=== PATIENT | female | born 1960 | race Caucasian/White ===

== ENCOUNTER 2017-03-27 08:16 | Outpatient (CLI) | payer OTHER ==
[2017-03-27 09:41] LABS: #Monocytes 0.4 thou/uL (0.11-0.59); #Neutrophils 3.8 thou/uL (1.40-6.50); %Basophils 0.8 % (0.0-1.0); %Eosinophils 0.1 % (0.0-10.0); %Lymphocytes 18.9 % (21.0-51.0); %Monocytes 7.2 % (0.0-10.0); Hematocrit 41.6 % (36.0-47.0); Mean Platelet Volume 8.9 fL (7.4-10.4); Red Blood Cell (RBC) Count 4.25 mill/uL (4.20-5.40); White Blood Cell (WBC) Count 5.2 thou/uL (4.8-10.8)
[2017-03-27 09:42] LABS: Bilirubin Moderate (Negative); Blood, Urine Negative (Negative); Glucose, Urine (Dipstick) Negative (Negative); Ketone, Urine Negative (Negative); Nitrite Negative (Negative); Protein, Urine (Dipstick) Negative (Neg-Trace); Urobilinogen 0.2 mg/dL (0.2-1.0)
[2017-03-27 09:44] LABS: Bacteria/HPF None Seen HPF (None Seen); Hyaline Casts/LPF 0-3 HYALINE CAST LPF (0-3 Hyaline); Squamous Epithelial 0-3 HPF (0-3); WBC/HPF 0-3 HPF (0-3)
[2017-03-27 09:46] LABS: Prothrombin Time 13.2 SEC (12.0-14.7)
[2017-03-27 09:54] LABS: Anion Gap 12 mmol/L (10-20); BUN (Urea Nitrogen) 14 mg/dL (9.8-20.1); Calc. Creatinine Clearance 0 mL/min (70-130); Calcium 9.3 mg/dL (7.8-10.44); Carbon Dioxide 27 mmol/L (22-29); Chloride 102 mmol/L (98-107); Estimated GFR-MDRD 74
== END 2017-03-27 08:17 | disposition home or self-care (01) ==
LOC: LABBT 08:16
PROVIDERS: ATTEND Orthopaedic Surgery
DX: Z01.818 Encounter for other preprocedural examination (principal); M17.12 Unilateral primary osteoarthritis, left knee
CPT/HCPCS: 80048; 81001; 85025; 85610; 86850; 86900; 86901; 87081

== ENCOUNTER 2017-03-27 08:30 | Inpatient (IN) | payer OTHER ==
[2017-03-27 08:26] VITALS: BMI 30.2
[2017-04-02] MEDS ORDERED: Vancomycin HCl 1.5 GM in Sodium Chloride 0.9% 250 ML 300 ML IVPB SCH ×2 (06:15→18:00)
[2017-04-02] MEDS ORDERED: Tranexamic Acid 1,000 MG/100 ML BAG ONE ×2 (06:16→09:17)
[2017-04-02] MEDS ORDERED: Clindamycin/D5W 600 mg/50 ml Premix Bag ONE (06:16)
[2017-04-02] MEDS ORDERED: Midazolam HCl 2 mg/2 ml Vial ONE (06:22)
[2017-04-02] MEDS ORDERED: Ropivacaine 0.2% HCl/PF 20 ML ONE (06:22)
[2017-04-02] MEDS ORDERED: Fentanyl 100 MCG/2 ML VIAL ONE ×3 (06:22→09:19)
[2017-04-02] MEDS ORDERED: Lidocaine 1% (PF) 30 ML VIAL ONE (06:22)
[2017-04-02] MEDS ORDERED: Bupivacaine PF 0.5% 30 ML VIAL ONE (06:28)
[2017-04-02 06:45] LABS: PTT 29.1 SEC (22.9-36.1); Prothrombin Time 13.5 SEC (12.0-14.7)
[2017-04-02] MEDS ORDERED: Promethazine HCl 25 MG/ML VIAL IM PRN ×3 (06:56→09:20)
[2017-04-02] MEDS ORDERED: traMADol HCl 50 MG TAB PO PRN ×3 (06:56→08:51)
[2017-04-02] MEDS ORDERED: HYDROcodone/Acetaminophen 5/325 mg Tablet PO PRN ×2 (06:56)
[2017-04-02] MEDS ORDERED: Ondansetron HCl/PF 4 MG/2 ML Vial IVP PRN ×2 (06:56→09:20)
[2017-04-02] MEDS ORDERED: Ropivacaine HCl/PF 250 ML in Premix Bag 1 BAG NERVE BLCK SCH (06:56)
[2017-04-02] MEDS ORDERED: Zolpidem Tartrate 5 MG TAB PO PRN ×2 (06:56→08:51)
[2017-04-02] MEDS ORDERED: Ondansetron HCl/PF 4 MG/2 ML Vial ONE (07:24)
[2017-04-02] MEDS ORDERED: Dexamethasone 20 MG/5 ML VIAL ONE (07:24)
[2017-04-02] MEDS ORDERED: Propofol 200 MG/20 ML VIAL ONE (07:24)
[2017-04-02] MEDS ORDERED: Acetaminophen 325 MG TAB PO PRN (08:51)
[2017-04-02] MEDS ORDERED: diphenhydrAMINE 25 MG CAP PO PRN (08:51)
[2017-04-02] MEDS ORDERED: HYDROcodone/Acetaminophen 10/325 mg Tablet PO PRN ×2 (08:51)
[2017-04-02] MEDS ORDERED: Tranexamic Acid 1,000 MG in Sodium Chloride 0.9% 100 ML IVPB SCH (09:00)
[2017-04-02] MEDS ORDERED: Promethazine HCl 25 MG/ML VIAL SLOW IVP PRN (09:20)
[2017-04-02] MEDS: Clopidogrel Bisulfate 75 MG TAB PO SCH (10:02)
[2017-04-02] MEDS: Aspirin 325 MG TAB PO SCH ×2 (10:02→20:01)
[2017-04-02] MEDS: Senokot S 8.6-50 MG TAB PO SCH ×2 (10:03→20:01)
[2017-04-02] MEDS: Ramipril 5 MG CAP PO SCH (10:03)
[2017-04-02] MEDS: Multivitamin W/ Minerals 1 TAB PO SCH (10:03)
[2017-04-02] MEDS: Ferrous Gluconate 324 MG TAB PO SCH ×2 (10:03→20:01)
[2017-04-02] MEDS: Furosemide 40 MG TAB PO SCH (10:03)
[2017-04-02] MEDS: Sodium Chloride 0.9% 1,000 ML IV SCH ×2 (10:03→19:47)
--- NOTE | 2017-04-02 10:17 | OP ---
DATE OF PROCEDURE: 04/02/2017 PREOPERATIVE DIAGNOSIS: Left knee osteoarthrosis. POSTOPERATIVE DIAGNOSIS: Left knee osteoarthrosis. PROCEDURE PERFORMED: Left total knee replacement using Telisma pinless navigation. SURGEON: Michael Ling M.D. BOTTLING SUPERVISOR: Reed Frye PA-C. BLOOD LOSS: Minimal. COMPLICATIONS: None. ANESTHESIA: She had general anesthetic, she had a preoperative block. IMPLANTS: To the left knee, Triathlon total knee system. We used a size 4 left cruciate retaining f emur, used a size 3 tibial baseplate that was the universal tibial baseplate. We used a 3 x 9 mm CSX 3 tibial bearing and an asymmetric 29 x 9 X3 patella. DISPOSITION: She did go to recovery room in stable condition. INDICATIONS: This is an active 56-year-old female who comes in complaining of left knee pain, has fa iled all nonoperative treatment at this point. At this time, she opted to have the knee replaced. PROCEDURE IN DETAIL: After all appropriate consent forms were explained and signed, the patient was taken back to the Operating Room and at this time was given general anesthetic. Once the level of ane sthesia was appropriate, a well-padded tourniquet was placed on the left leg and the leg was then pre pped and draped in standard surgical fashion. The limb was exsanguinated and tourniquet taken up to 3 00 mmHg. Midline incision was made with a 10 blade down through the skin and subcutaneous tissue. Bov ie electrocautery was used to coagulate any brisk venous bleeding. A new blade was used to make a med ial parapatellar arthrotomy. Small subperiosteal release was performed medially and excess fat pad wa s removed. The knee was flexed up to gain access to the femur. The femur was navigated and distal fem oral resection was made. Epicondylar access was used to align our sizing jig and this was pinned in p rain. We sized our femur to be a ?? 4:1 cutting block was applied and pinned. Anterior and posterior chamfer cuts were then made. We navigated out our proximal tibia and made our proximal tibial resecti on. Spreaders were used to remove any posterior osteophytes off the back of the femur as well as nita ining meniscal tissue. A long alignment corine was then used to achieve correct rotation of our tibial b aseplate and a size 3 was chosen. This was pinned in place. We trialed the polyethylene and a ?? poly ethylene gave us full extension and good stability throughout range of motion. Two towel clips and a saw were used to cut our patella. Three lug nuts were drilled and 29 x 9 X3 patella was trialed which sat nicely in the trochlear groove. We then drilled our femur and punched our tibia. All components were removed. The knee was thoroughly irrigated and dried. Cement was mixed into the cement gun on e back table. Components were then placed. The knee was held out in full extension until the cement h ad dried. All excess bone cement was removed. Multiple #2 Vicryl stitches as well as a Quill was use d to close our extensor mechanism. 0 Quill followed by a running Monoderm was then used to close the skin. Surgicel glue was then used on the skin. Once this had dried, soft tissue dressing was applied to the limb, tourniquet was let down, and the toes pinked up nicely. The patient was then awakened a nd taken to the Recovery Room in stable condition. All counts were correct at the end of the case. e patient did receive preoperative IV antibiotics. The patient was injected with Exparel for postope rative pain relief.
[2017-04-02] MEDS: Fentanyl 100 MCG/2 ML VIAL IV PRN (10:44)
[2017-04-02] MEDS: Ketorolac Tromethamine 30 MG/ML VIAL IVP SCH ×3 (11:38→23:53)
[2017-04-02] MEDS: Clindamycin/D5W 900 MG in Premix Bag 1 BAG IVPB SCH ×2 (11:39→17:57)
--- NOTE | 2017-04-02 17:28 | PDOC.PN ---
- Subjective Encounter Start Date: 04/02/17 Encounter Start Time: 10:40 Pt seen for management of medical comorbidities, including hypothyroidism. Denies chest pain, shortness of breath, fevers or chills. - Objective MAR Reviewed: Yes Vital Signs & Weight: Vital Signs (12 hours) Temp Pulse Resp BP Pulse Ox 04/02/17 12:00 96 04/02/17 10:10 97.7 F 78 18 135/66 96 Weight Weight 187 lb Phys Exam - Physical Examination Constitutional: NAD HEENT: moist MMs Neck: supple Respiratory: clear to auscultation bilateral Cardiovascular: RRR Gastrointestinal: soft, non-tender s/p L knee surgery Neurological: moves all 4 limbs Psychiatric: normal affect Skin: no rash Dx/Plan (1) Hypothyroidism Code(s): E03.9 - HYPOTHYROIDISM, UNSPECIFIED Status: Chronic (2) Peripheral vascular disease Code(s): I73.9 - PERIPHERAL VASCULAR DISEASE, UNSPECIFIED Status: Chronic (3) HTN (hypertension) Code(s): I10 - ESSENTIAL (PRIMARY) HYPERTENSION Status: Chronic - Plan PT/OT, out of bed/ambulate * . Monitor vital signs, titrate antihypertensives as needed. Start PRN IV hydralazine. PVD stable. Continue thyroid replacement. s/p L knee surgery. Pain management and DVT prophylaxis per orthopedic surgery service. Review of Systems - Review of Systems Respiratory: negative: Cough, Dry, Shortness of Breath, Hemoptysis, SOB with Excertion, Pleuritic Pain, Sputum, Wheezing Cardiovascular: negative: Chest Pain, Palpitations, Orthopnea, Paroxysmal Noc. Dyspnea, Edema, Light Headedness - Medications/Allergies Allergies/Adverse Reactions: Allergies Allergy/AdvReac Type Severity Reaction Status Date / Time Penicillins Allergy Intermediate Hives Verified 03/27/17 08:27 Medications: Current Medications Acetaminophen (Tylenol) 650 mg PO Q4H PRN PRN Reason: [place]/ T > 101F; Mild Pain (1-3) Hydrocodone Bitart/Acetaminophen ([place] 5/325) 1 tab PO Q4H PRN PRN Reason: Mild Pain (1-3) Hydrocodone Bitart/Acetaminophen ([place] 5/325) 2 tab PO Q4H PRN PRN Reason: For Moderate Pain 4-6 Hydrocodone Bitart/Acetaminophen ([place] 10/325) 1 tab PO Q4H PRN PRN Reason: Moderate Pain (4-6) Hydrocodone Bitart/Acetaminophen ([place] 10/325) 2 tab PO Q4H PRN PRN Reason: Severe Pain (7-10) Aspirin (Aspirin) 325 mg PO BID [facility] Last Admin: 04/02/17 10:02 Dose: Not Given Clopidogrel Bisulfate (Plavix) 75 mg PO DAILY [facility] Last Admin: 04/02/17 10:02 Dose: Not Given Diphenhydramine HCl (Benadryl) 25 mg PO Q6H PRN PRN Reason: Itching Fentanyl (Sublimaze) 50 mcg IV Q1H PRN PRN Reason: BT PAIN Last Admin: 04/02/17 10:44 Dose: 50 mcg Ferrous Gluconate (Fergon) 324 mg PO BID [facility] Last Admin: 04/02/17 10:03 Dose: Not Given Furosemide (Lasix) 40 mg PO DAILY [facility] Last Admin: 04/02/17 10:03 Dose: Not Given Ropivacaine 250 ml/ Device 250 mls @ 0 mls/hr NERVE BLCK INF [facility] PRN Reason: As Directed Clindamycin Phosphate/Dextrose (900 mg/ Device) 50 mls @ 100 mls/hr IVPB Q6HR [facility] Stop: 04/02/17 18:29 Last Admin: 04/02/17 11:39 Dose: 50 mls Sodium Chloride (Normal Saline 0.9%) 1,000 mls @ 100 mls/hr IV .Q10H [facility] Last Admin: 04/02/17 10:03 Dose: Not Given Vancomycin HCl 1.5 gm/ Sodium (Chloride) 300 mls @ 200 mls/hr IVPB 1800 [facility] Stop: 04/02/17 19:29 Iron/Minerals/Multivitamins (Theragran M) 1 tab PO DAILY [facility] Last Admin: 04/02/17 10:03 Dose: Not Given Isosorbide Mononitrate (Imdur) 60 mg PO DAILY [facility] Last Admin: 04/02/17 10:03 Dose: Not Given Ketorolac Tromethamine (Toradol) 30 mg IVP Q6HR [facility] Stop: 04/04/17 06:01 Last Admin: 04/02/17 11:38 Dose: 30 mg Ondansetron HCl (Zofran) 4 mg IVP Q6H PRN PRN Reason: Nausea/Vomiting Promethazine HCl (Phenergan) 12.5 mg IM Q4H PRN PRN Reason: Nausea/Vomiting Ramipril (Altace) 10 mg PO DAILY [facility] Last Admin: 04/02/17 10:03 Dose: Not Given Senna/Docusate Sodium (Senokot S) 2 tab PO BID [facility] Last Admin: 04/02/17 10:03 Dose: Not Given Sodium Chloride (Flush - Normal Saline) 10 ml IVF PRN PRN PRN Reason: Saline Flush Thyroid ([place] Thyroid) 90 mg PO 0600 [facility] Tramadol HCl (Ultram) 100 mg PO Q6H PRN PRN Reason: Mild Pain (1-3) Zolpidem Tartrate (Ambien) 5 mg PO HSPRN PRN PRN Reason: Insomnia
[2017-04-02] MEDS ORDERED: hydrALAZINE 20 MG/ML VIAL SLOW IVP PRN (17:44)
[2017-04-02] MEDS: Calcium Carbonate 500 MG ChewTAB PO PRN (21:36)
[2017-04-03] MEDS: Calcium Carbonate 500 MG ChewTAB PO PRN (01:54)
[2017-04-03] MEDS: Ondansetron HCl/PF 4 MG/2 ML Vial IVP PRN ×3 (01:54→20:40)
[2017-04-03 04:34] LABS: Hematocrit 34.1 % (36.0-47.0); Mean Platelet Volume 9.1 fL (7.4-10.4); Red Blood Cell (RBC) Count 3.49 mill/uL (4.20-5.40); White Blood Cell (WBC) Count 11.3 thou/uL (4.8-10.8)
[2017-04-03] MEDS: Sodium Chloride 0.9% 1,000 ML IV SCH ×2 (06:04→15:12)
[2017-04-03] MEDS: Ketorolac Tromethamine 30 MG/ML VIAL IVP SCH ×3 (06:58→18:10)
[2017-04-03] MEDS: Thyroid,Pork 90 MG TAB PO SCH (06:58)
[2017-04-03] MEDS: Furosemide 40 MG TAB PO SCH (07:02)
[2017-04-03] MEDS: Clopidogrel Bisulfate 75 MG TAB PO SCH (08:39)
[2017-04-03] MEDS: Senokot S 8.6-50 MG TAB PO SCH ×2 (08:40→19:19)
[2017-04-03] MEDS: Multivitamin W/ Minerals 1 TAB PO SCH (08:40)
[2017-04-03] MEDS: Aspirin 325 MG TAB PO SCH ×2 (08:40→19:20)
[2017-04-03] MEDS: Ramipril 5 MG CAP PO SCH (08:41)
--- NOTE | 2017-04-03 09:47 | PDOC.PN ---
- Subjective Encounter Start Date: 04/03/17 Encounter Start Time: 08:00 Pt seen for followup re; hypothyroidism. Denies chest pain, shortness of breath, fevers or chills. - Objective MAR Reviewed: Yes Vital Signs & Weight: Vital Signs (12 hours) Temp Pulse Resp BP BP Pulse Ox 04/03/17 08:41 166/85 H 04/03/17 07:25 98.1 F 60 20 166/85 H 95 04/02/17 23:54 68 14 118/69 Weight Weight 187 lb I&O: 04/02/17 04/03/17 04/04/17 06:59 06:59 06:59 Output Total 1050 Balance -1050 Result Diagrams: 04/03/17 03:43 Phys Exam - Physical Examination Constitutional: NAD HEENT: moist MMs Neck: supple Respiratory: clear to auscultation bilateral Cardiovascular: RRR Gastrointestinal: soft, non-tender s/p L knee surgery Neurological: moves all 4 limbs Psychiatric: normal affect Skin: no rash Dx/Plan (1) Hypothyroidism Code(s): E03.9 - HYPOTHYROIDISM, UNSPECIFIED Status: Chronic (2) Peripheral vascular disease Code(s): I73.9 - PERIPHERAL VASCULAR DISEASE, UNSPECIFIED Status: Chronic (3) HTN (hypertension) Code(s): I10 - ESSENTIAL (PRIMARY) HYPERTENSION Status: Chronic - Plan PT/OT, out of bed/ambulate * . Continue thyroid replacement. Monitor vital signs, titrate antihypertensives as needed. Review of Systems - Review of Systems Constitutional: negative: Fever, Chills, Sweats, Weakness, Malaise Respiratory: negative: Cough, Dry, Shortness of Breath, Hemoptysis, SOB with Excertion, Pleuritic Pain, Sputum, Wheezing Cardiovascular: negative: Chest Pain, Palpitations, Orthopnea, Paroxysmal Noc. Dyspnea, Edema, Light Headedness - Medications/Allergies Allergies/Adverse Reactions: Allergies Allergy/AdvReac Type Severity Reaction Status Date / Time Penicillins Allergy Intermediate Hives Verified 03/27/17 08:27 Medications: Current Medications Acetaminophen (Tylenol) 650 mg PO Q4H PRN PRN Reason: [place]/ T > 101F; Mild Pain (1-3) Hydrocodone Bitart/Acetaminophen ([place] 5/325) 1 tab PO Q4H PRN PRN Reason: Mild Pain (1-3) Hydrocodone Bitart/Acetaminophen ([place] 5/325) 2 tab PO Q4H PRN PRN Reason: For Moderate Pain 4-6 Hydrocodone Bitart/Acetaminophen ([place] 10/325) 1 tab PO Q4H PRN PRN Reason: Moderate Pain (4-6) Hydrocodone Bitart/Acetaminophen ([place] 10/325) 2 tab PO Q4H PRN PRN Reason: Severe Pain (7-10) Last Admin: 04/02/17 17:55 Dose: 2 tab Aspirin (Aspirin) 325 mg PO BID [facility] Last Admin: 04/03/17 08:40 Dose: Not Given Calcium Carbonate (Tums) 500 mg PO PRN PRN PRN Reason: Indigestion Last Admin: 04/03/17 01:54 Dose: 500 mg Clopidogrel Bisulfate (Plavix) 75 mg PO DAILY [facility] Last Admin: 04/03/17 08:39 Dose: 75 mg Diphenhydramine HCl (Benadryl) 25 mg PO Q6H PRN PRN Reason: Itching Fentanyl (Sublimaze) 50 mcg IV Q1H PRN PRN Reason: BT PAIN Last Admin: 04/02/17 10:44 Dose: 50 mcg Furosemide (Lasix) 40 mg PO DAILY [facility] Last Admin: 04/03/17 07:02 Dose: 40 mg Hydralazine HCl (Apresoline) 10 mg SLOW IVP Q6H PRN PRN Reason: SBP Greater Than 170 Ropivacaine 250 ml/ Device 250 mls @ 0 mls/hr NERVE BLCK INF ON [facility] OF [facility] PRN Reason: As Directed Last Admin: 04/03/17 09:36 Dose: 250 mls Sodium Chloride (Normal Saline 0.9%) 1,000 mls @ 100 mls/hr IV .Q10H [facility] Last Admin: 04/03/17 06:04 Dose: Not Given Iron/Minerals/Multivitamins (Theragran M) 1 tab PO DAILY [facility] Last Admin: 04/03/17 08:40 Dose: 1 tab Isosorbide Mononitrate (Imdur) 60 mg PO DAILY [facility] Last Admin: 04/03/17 08:40 Dose: 60 mg Ketorolac Tromethamine (Toradol) 30 mg IVP Q6HR [facility] Stop: 04/04/17 06:01 Last Admin: 04/03/17 06:58 Dose: 30 mg Ondansetron HCl (Zofran) 4 mg IVP Q6H PRN PRN Reason: Nausea/Vomiting Last Admin: 04/03/17 07:02 Dose: 4 mg Pantoprazole Sodium (Protonix) 40 mg PO DAILY [facility] Last Admin: 04/03/17 08:40 Dose: 40 mg Promethazine HCl (Phenergan) 12.5 mg IM Q4H PRN PRN Reason: Nausea/Vomiting Ramipril (Altace) 10 mg PO DAILY [facility] Last Admin: 04/03/17 08:41 Dose: 10 mg Senna/Docusate Sodium (Senokot S) 2 tab PO BID [facility] Last Admin: 04/03/17 08:40 Dose: Not Given Sodium Chloride (Flush - Normal Saline) 10 ml IVF PRN PRN PRN Reason: Saline Flush Thyroid (Home Thyroid) 90 mg PO 0600 [facility] Last Admin: 04/03/17 06:58 Dose: 90 mg Tramadol HCl (Ultram) 100 mg PO Q6H PRN PRN Reason: Mild Pain (1-3) Zolpidem Tartrate (Ambien) 5 mg PO HSPRN PRN PRN Reason: Insomnia
[2017-04-03] MEDS: Mag-Al 1200 mg/1200 mg/30 ML UDCUP PO PRN ×2 (11:38→20:37)
[2017-04-03] MEDS: Fentanyl 100 MCG/2 ML VIAL IV PRN (15:20)
[2017-04-03] MEDS ORDERED: traMADol HCl 50 MG TAB PO PRN ×2 (18:41)
[2017-04-04] MEDS: Sodium Chloride 0.9% 1,000 ML IV SCH (00:16)
[2017-04-04] MEDS: Ketorolac Tromethamine 30 MG/ML VIAL IVP SCH ×2 (00:20→06:13)
[2017-04-04 05:26] LABS: Hematocrit 35.6 % (36.0-47.0); Mean Platelet Volume 8.7 fL (7.4-10.4); Red Blood Cell (RBC) Count 3.65 mill/uL (4.20-5.40); White Blood Cell (WBC) Count 7.8 thou/uL (4.8-10.8)
[2017-04-04] MEDS: Thyroid,Pork 90 MG TAB PO SCH (06:13)
[2017-04-04] MEDS: Multivitamin W/ Minerals 1 TAB PO SCH (08:01)
[2017-04-04] MEDS: Ramipril 5 MG CAP PO SCH (08:01)
[2017-04-04] MEDS: Senokot S 8.6-50 MG TAB PO SCH (08:02)
[2017-04-04] MEDS: Clopidogrel Bisulfate 75 MG TAB PO SCH (08:02)
[2017-04-04] MEDS: Aspirin 325 MG TAB PO SCH (09:43)
[2017-04-04] MEDS: Furosemide 40 MG TAB PO SCH (09:43)
[2017-04-04 13:09] VITALS: BP 132/69; TEMP 98.4
[2017-04-04] MEDS: Fentanyl 100 MCG/2 ML VIAL IV PRN (13:36)
--- NOTE | 2017-04-04 14:24 | PDOC.PN ---
- Subjective Encounter Start Date: 04/04/17 Encounter Start Time: 08:20 Pt seen for followup re; hypothyroidism. Denies chest pain, shortness of breath , fevers or chills. - Objective MAR Reviewed: Yes Vital Signs & Weight: Vital Signs (12 hours) Temp Pulse Resp BP BP Pulse Ox 04/04/17 11:35 98.4 F 83 20 132/69 92 L 04/04/17 08:58 98.5 F 86 20 133/76 97 04/04/17 08:01 133/76 04/04/17 08:00 98.5 F 86 20 97 04/04/17 06:00 99.1 F 80 18 145/80 H 94 L Weight Admit Weight 187 lb Weight 187 lb I&O: 04/03/17 04/04/17 04/05/17 06:59 06:59 06:59 Intake Total 1010 Output Total 3575 Balance -2565 Result Diagrams: 04/04/17 05:03 Phys Exam - Physical Examination Constitutional: NAD HEENT: moist MMs Neck: supple Respiratory: clear to auscultation bilateral Cardiovascular: RRR Gastrointestinal: soft s/p L knee surgery Neurological: moves all 4 limbs Psychiatric: normal affect Dx/Plan (1) Hypothyroidism Code(s): E03.9 - HYPOTHYROIDISM, UNSPECIFIED Status: Chronic (2) Peripheral vascular disease Code(s): I73.9 - PERIPHERAL VASCULAR DISEASE, UNSPECIFIED Status: Chronic (3) HTN (hypertension) Code(s): I10 - ESSENTIAL (PRIMARY) HYPERTENSION Status: Chronic - Plan PT/OT, out of bed/ambulate * . Continue to monitor vital signs and titrate antihypertensives. Continue thyroid replacement. Plan to discharge patient noted, will sign off. Review of Systems - Review of Systems Respiratory: negative: Cough, Dry, Shortness of Breath, Hemoptysis, SOB with Excertion, Pleuritic Pain, Sputum, Wheezing Cardiovascular: negative: Chest Pain, Palpitations, Orthopnea, Paroxysmal Noc. Dyspnea, Edema, Light Headedness - Medications/Allergies Allergies/Adverse Reactions: Allergies Allergy/AdvReac Type Severity Reaction Status Date / Time Penicillins Allergy Intermediate Hives Verified 03/27/17 08:27
== END 2017-04-04 14:17 | disposition home or self-care (01) | DRG 470 ==
LOC: SJJU 04-02 05:32
PROVIDERS: ADMIT Orthopaedic Surgery; ATTEND Orthopaedic Surgery
PROC: 0SRD0J9 Replacement of Left Knee Joint with Synthetic Substitute, Cemented, Open Approach (ICD-10-PCS; principal; 2017-04-02)
PROC: 3E0T3BZ Introduction of Anesthetic Agent into Peripheral Nerves and Plexi, Percutaneous Approach (ICD-10-PCS; 2017-04-02)
DX: M17.12 Unilateral primary osteoarthritis, left knee (principal); I10 Essential (primary) hypertension; E03.9 Hypothyroidism, unspecified; I73.9 Peripheral vascular disease, unspecified; Z88.0 Allergy status to penicillin; Z79.82 Long term (current) use of aspirin
CPT/HCPCS: 36415; 85027; 85610; 85730; 93005; 93010; C1713; C1776; G8978-GP-CM; G8979-GP-CI; J0360; J1100; J1885; J2001; J2250; J2405; J2704; J2795; J3010; J3370; J3490; J7050; S0020

== ENCOUNTER 2017-09-07 05:53 | Day surgery (SDC) | payer OTHER ==
[2017-09-06 10:43] VITALS: BMI 29.7
--- NOTE | 2017-09-06 23:35 | HP ---
HISTORY OF PRESENT ILLNESS: Ms. Correa is known to us for evaluation of lumbar radiculopathy bilat erally with an MRI scan performed at the [facility] which reveals severe lumbar stenosis at L4-L5 . She has had 2 epidural steroid injections [address] Dr[address] Hawkins with minimal to no relief and hopes to move forward with surgery at this time. PAST MEDICAL HISTORY: Significant for heart disease, peripheral vascular disease, hypothyroidism. CURRENT MEDICATIONS: Plavix, Lasix, Altace, Synthroid, Imdur. ALLERGIES: PENICILLIN. PAST SURGICAL HISTORY: section x2, tubal ligation, hysterectomy, stent in the peripheral va sculature, and cholecystectomy. PHYSICAL EXAMINATION: NEUROLOGIC: Patient is alert and oriented x3. Gait is antalgic. Lower extremity motor exam is norm al. ASSESSMENT: Lumbar spinal stenosis. PLAN: Dr. Jean-Baptiste met with the patient, reviewed imaging and advocated for an L4-L5 decompression. He explained to the patient the risks, benefits, and alternatives of the procedure. The patient expres sed understanding and would like to move forward with surgery as discussed. They do believe the tyler ent is mentally competent and capable of making medical decisions for herself and move forward with s urgery as planned.
[2017-09-07] MEDS ORDERED: Fentanyl 250 MCG/5 ML VIAL ONE (06:16)
[2017-09-07] MEDS ORDERED: Midazolam HCl 2 mg/2 ml Vial ONE (06:16)
[2017-09-07] MEDS ORDERED: Bupivacaine HCl 0.5%/Epinephrine 1:200,000/PF 30 ml Vial ONE (06:47)
[2017-09-07] MEDS ORDERED: Thrombin 5000 UNITS/5 ML VIAL ONE (06:47)
[2017-09-07] MEDS ORDERED: Clindamycin/D5W 900 mg/50 ml Premix Bag ONE (06:52)
[2017-09-07] MEDS ORDERED: Levofloxacin 500 mg/D5W 100 ml Premix Bag ONE (06:52)
[2017-09-07] MEDS ORDERED: Scopolamine 1.5 mg/72 hour Patch ONE (06:55)
[2017-09-07] MEDS ORDERED: Ondansetron ODT 4 MG TAB ONE (06:55)
[2017-09-07] MEDS ORDERED: Ondansetron HCl/PF 4 MG/2 ML Vial ONE (07:00)
[2017-09-07 07:07] LABS: Anion Gap 10 mmol/L (10-20); BUN (Urea Nitrogen) 17 mg/dL (9.8-20.1); Calc. Creatinine Clearance 113 mL/min (70-130); Calcium 9.5 mg/dL (7.8-10.44); Carbon Dioxide 29 mmol/L (22-29); Chloride 104 mmol/L (98-107); Estimated GFR-MDRD 82; Glucose 101 mg/dL (70-105); Potassium 4.3 mmol/L (3.5-5.1); Sodium 139 mmol/L (136-145)
--- NOTE | 2017-09-07 08:40 | OP ---
DATE OF SERVICE: 09/07/2017 SURGEON: Salvador Jean-Baptiste M.D. RIPRAP MAN: Davi Irving PA-C. INDICATION: Pain. DIAGNOSIS: Lumbar stenosis with neurogenic claudication. PROCEDURE PERFORMED: L4-L5 lumbar decompression. ANESTHESIA: General. TECHNIQUE: The patient was brought into the operating room and placed under general anesthesia. She was flipped from a supine to prone position on the operating room table. A linear incision was plan krissy over the L4-L5 segment. After prepping and draping and after an appropriate operative pause, the incision was created. The soft tissues were swept away from midline. A self-retaining retractor wa s placed in the wound for optimal exposure. After confirming the appropriate level, a C-arm fluorosc opy and Adson rongeur as well as 2, 3 and 4 mm Kerrisons and a high-speed cutting drill bit was used to perform a laminectomy at the L4-L5 segment. After decompression, the central canal and lateral re cess of the wound was irrigated. Hemostasis was maintained throughout. The wound was then closed in anatomic layers and a pressure dressing was applied. There were no known procedural complications.
[2017-09-07] MEDS ORDERED: Fentanyl 100 MCG/2 ML VIAL ONE (08:54)
[2017-09-07] MEDS ORDERED: HYDROcodone/Acetaminophen 5/325 mg Tablet ONE (09:57)
== END 2017-09-07 10:37 | disposition home or self-care (01) ==
LOC: SDC 05:53
PROVIDERS: ATTEND Neurological Surgery
PROC: 00NY0ZZ Release Lumbar Spinal Cord, Open Approach (ICD-10-PCS; principal; 2017-09-07)
DX: M48.062 Spinal stenosis, lumbar region with neurogenic claudication (principal); E03.9 Hypothyroidism, unspecified; I73.9 Peripheral vascular disease, unspecified; I51.9 Heart disease, unspecified; Z88.0 Allergy status to penicillin; Z98.890 Other specified postprocedural states
CPT/HCPCS: 76001; 80048; J0670; J1956; J2250; J2405; J3010; J3490; Q0162

== ENCOUNTER 2018-06-01 10:54 | Emergency (ER) | payer OTHER ==
[2018-06-01 11:49] LABS: #Eosinphils 0.2 thou/uL (0.0-0.7); #Lymphocytes 1.1 thou/uL (1.20-3.40); #Monocytes 0.5 thou/uL (0.11-0.59); #Neutrophils 4.4 thou/uL (1.40-6.50); %Basophils 0.2 % (0.0-1.0); %Eosinophils 3.5 % (0.0-10.0); %Lymphocytes 17.3 % (21.0-51.0); %Monocytes 8.3 % (0.0-10.0); %Neutrophils 70.7 % (42.0-75.0); Hemoglobin 12.5 g/dL (12.0-16.0); Mean Corpuscular HGB CONC 32.6 g/dL (32.0-36.0); Mean Corpuscular Hemoglobin 31.2 pg (27.0-31.0); Mean Corpuscular Volume 95.5 fL (78.0-98.0); Mean Platelet Volume 9.4 fL (7.4-10.4); Platelet Count 211 thou/uL (130-400); RBC Distribution Width 12.1 % (11.5-14.5); White Blood Cell (WBC) Count 6.3 thou/uL (4.8-10.8)
[2018-06-01 12:05] LABS: ALT (SGPT) 17 U/L (8-55); AST (SGOT) 12 U/L (5-34); Albumin 3.7 g/dL (3.5-5.0); Alkaline Phosphatase 87 U/L (40-150); Anion Gap 13 mmol/L (10-20); BUN (Urea Nitrogen) 14 mg/dL (9.8-20.1); Bilirubin, Total 0.7 mg/dL (0.2-1.2); Calc. Creatinine Clearance 0 mL/min (70-130); Carbon Dioxide 25 mmol/L (22-29); Chloride 104 mmol/L (98-107); Estimated GFR-MDRD 69; Globulin 2.6 g/dL (2.4-3.5); Glucose 97 mg/dL (70-105); Potassium 3.8 mmol/L (3.5-5.1); Protein, Total 6.3 g/dL (6.0-8.3); Sodium 138 mmol/L (136-145)
--- NOTE | 2018-06-01 13:15 | ULT ---
LIMITED VASCULAR ULTRASOUND OF RIGHT GROIN: Date: 06/01/18 PROVIDED CLINICAL HISTORY: Right groin pain status post cardiac catheterization. FINDINGS: There is a circumscribed focus of altered echogenicity in the region of palpable concern at the right groin measuring about 4.0 cm. This demonstrates mixed internal echogenicity typical for the sonograp hic appearance of hematoma in the clinical setting described. There is no evidence for flow within th is area to suggest a pseudoaneurysm. Normal arterial flow is seen within the common femoral artery. F low is documented within the common femoral vein. IMPRESSION: Soft tissue hematoma without evidence for pseudoaneurysm. POS: ANA
== END 2018-06-01 13:47 | disposition home or self-care (01) ==
LOC: ERS 10:54
DX: M79.81 Nontraumatic hematoma of soft tissue (principal); Z79.899 Other long term (current) drug therapy
CPT/HCPCS: 36415; 80053; 85025

== ENCOUNTER 2020-10-18 12:48 | Outpatient (CLI) | payer BC ==
[~2020-10-18 12:48] MED LIST: Magnevist 469MG/ML 20 ML VIAL ONE
== END 2020-10-18 12:49 | disposition home or self-care (01) ==
LOC: BICMRI 12:48
PROVIDERS: ATTEND Neurological Surgery
DX: M47.26 Other spondylosis with radiculopathy, lumbar region (principal); M43.16 Spondylolisthesis, lumbar region; Z98.890 Other specified postprocedural states
CPT/HCPCS: 72158; 82565

== ENCOUNTER 2021-01-05 13:05 | Outpatient (CLI) | payer BC ==
[2021-01-05 13:52] LABS: Hemoglobin 13.5 g/dL (12.0-15.5); Mean Corpuscular Hemoglobin 30.7 pg (27.0-33.0); Mean Corpuscular Volume 95.9 fl (81.6-98.3); Mean Platelet Volume 11.5 fl (7.4-10.4); Platelet Count 271 10x3/uL (150-450); RBC Distribution Width 13.1 % (11.5-14.5); White Blood Cell (WBC) Count 7.9 10x3/uL (3.5-10.5)
[2021-01-05 14:42] LABS: Anion Gap 15 mmol/L (10-20); BUN (Urea Nitrogen) 16 mg/dL (9.8-20.1); Calc. Creatinine Clearance 0 mL/min (70-130); Calcium 10.1 mg/dL (7.8-10.44); Carbon Dioxide 27 mmol/L (23-31); Chloride 102 mmol/L (98-107); Glucose 89 mg/dL (80-115); Potassium 4.4 mmol/L (3.5-5.1); Sodium 140 mmol/L (136-145)
[2021-01-06 02:27] LABS: SARS-CoV-2 PCR by NAA Not Detected (NotDetected)
== END 2021-01-05 13:06 | disposition home or self-care (01) ==
LOC: LABBT 13:05
PROVIDERS: ATTEND Neurological Surgery
DX: Z01.812 Encounter for preprocedural laboratory examination (principal); M43.16 Spondylolisthesis, lumbar region; Z20.822 Contact with and (suspected) exposure to COVID-19
CPT/HCPCS: 80048; 85027; U0003; U0005

== ENCOUNTER 2021-01-10 05:42 | Day surgery (SDC) | payer BC ==
[2021-01-07 10:30] VITALS: BMI 33.0
[2021-01-10] MEDS ORDERED: Bupivacaine PF 0.5% 30 ML VIAL ONE (06:25)
[2021-01-10] MEDS ORDERED: Thrombin 5000 UNITS/5 ML VIAL ONE (06:25)
[2021-01-10] MEDS ORDERED: EPINEPHrine 1 MG/ML AMP ONE (06:25)
[2021-01-10] MEDS ORDERED: Fentanyl 250 MCG/5 ML VIAL ONE (06:31)
[2021-01-10] MEDS ORDERED: Levofloxacin 500 mg/D5W 100 ml Premix Bag ONE (06:58)
[2021-01-10] MEDS ORDERED: Clindamycin/D5W 900 mg/50 ml Premix Bag ONE (06:58)
[2021-01-10] MEDS ORDERED: Scopolamine 1.5 mg/72 hour Patch ONE (06:58)
[2021-01-10] MEDS ORDERED: PROPOFOL 200 MG/20 ML VIAL ONE (07:00)
[2021-01-10] MEDS ORDERED: Ondansetron PF 4 MG/2 ML Vial ONE (07:00)
[2021-01-10] MEDS ORDERED: Glycopyrrolate 0.2 MG/ML 5 ML SYRINGE ONE (07:00)
[2021-01-10] MEDS ORDERED: Dexamethasone 20 MG/5 ML VIAL ONE (07:00)
[2021-01-10] MEDS ORDERED: Rocuronium Bromide 10 MG/ML (10ML VIAL) ONE (07:00)
[2021-01-10] MEDS ORDERED: Lidocaine 1% PF 5 ML VIAL ONE (07:00)
[2021-01-10] MEDS ORDERED: Morphine 4 MG/ML VIAL ONE (10:18)
[2021-01-10] MEDS ORDERED: Fentanyl 100 MCG/2 ML VIAL ONE (10:19)
[2021-01-10] MEDS ORDERED: Morphine 2 MG/ML VIAL ONE ×2 (10:40→11:50)
[2021-01-10] MEDS ORDERED: PHENYLEPHRINE-NS 100 MCG/ML 10 ML SYRINGE ONE (11:50)
[2021-01-10] MEDS ORDERED: HYDROcodone/Acetaminophen 10/325 mg Tablet ONE (12:52)
== END 2021-01-10 13:50 | disposition home or self-care (01) ==
LOC: SDC 05:42
PROVIDERS: ATTEND Neurological Surgery
PROC: 0SG0071 Fusion of Lumbar Vertebral Joint with Autologous Tissue Substitute, Posterior Approach, Posterior Column, Open Approach (ICD-10-PCS; principal; 2021-01-10)
DX: M43.16 Spondylolisthesis, lumbar region (principal); M54.16 Radiculopathy, lumbar region; M48.061 Spinal stenosis, lumbar region without neurogenic claudication; I25.10 Atherosclerotic heart disease of native coronary artery without angina pectoris; I73.9 Peripheral vascular disease, unspecified; Z79.02 Long term (current) use of antithrombotics/antiplatelets; Z79.899 Other long term (current) drug therapy; Z88.0 Allergy status to penicillin
CPT/HCPCS: 76000; 93005; 93010; C1713; C1768; J0171; J1100; J1956; J2270; J2405; J2704; J3010; J3490; S0020

== ENCOUNTER 2021-02-01 10:45 | Outpatient (CLI) | payer BC | END 2021-02-01 10:46 | disposition home or self-care (01) | LOC: TBSIIMAG 10:45 | PROVIDERS: ATTEND Neurological Surgery | DX: R10.2 Pelvic and perineal pain (principal) | CPT/HCPCS: 72170 ==

== ENCOUNTER 2021-03-16 13:09 | Outpatient (CLI) | payer BC | END 2021-03-16 13:10 | disposition home or self-care (01) | LOC: LABBT 13:09 | PROVIDERS: ATTEND Orthopaedic Surgery | DX: Z01.818 Encounter for other preprocedural examination (principal); M17.11 Unilateral primary osteoarthritis, right knee | CPT/HCPCS: 71046; 80048; 81003; 85025; 85610; 86850; 86900; 86901; 87081; U0003; U0005 ==

== ENCOUNTER 2021-03-21 05:36 | Inpatient (IN) | payer BC ==
[2021-03-16 14:19] LABS: Bilirubin 3+ (Negative); Blood, Urine Negative (Negative); Clarity Clear (Clear); Glucose, Urine (Dipstick) Normal (Negative); Ketone, Urine Negative (Negative); Leukocyte Negative (Negative); Nitrite Negative (Negative); Protein, Urine (Dipstick) Negative (Neg-Trace); Specific Gravity, Urine 1.015 (1.002-1.036); Urobilinogen Normal mg/dL (Less than 2)
[2021-03-16 14:24] LABS: #Basophils 0.1 10x3/uL (0.0-0.2); #Eosinphils 0.3 10x3/uL (0.0-0.5); #Monocytes 0.6 10x3/uL (0.0-1.1); #Neutrophils 4.2 10x3/uL (1.5-8.4); %Basophils 0.9 % (0.0-2.0); %Eosinophils 4.7 % (0.0-6.0); %Monocytes 8.7 % (0.0-10.0); %Neutrophils 62.3 % (40.0-75.0); Hemoglobin 12.9 g/dL (12.0-15.5); Mean Corpuscular Hemoglobin 29.9 pg (27.0-33.0); Mean Corpuscular Volume 93.5 fl (81.6-98.3); Mean Platelet Volume 11.8 fl (7.4-10.4); Platelet Count 296 10x3/uL (150-450); RBC Distribution Width 12.7 % (11.5-14.5); Red Blood Cell (RBC) Count 4.31 10x6/uL (3.90-5.03); White Blood Cell (WBC) Count 6.8 10x3/uL (3.5-10.5)
[2021-03-16 14:36] LABS: INR-International Normal Ratio 0.9; Prothrombin Time 10.5 sec (9.5-12.1)
[2021-03-16 14:41] LABS: Anion Gap 15 mmol/L (10-20); BUN (Urea Nitrogen) 20 mg/dL (9.8-20.1); Calc. Creatinine Clearance 0 mL/min (70-130); Calcium 9.6 mg/dL (7.8-10.44); Carbon Dioxide 25 mmol/L (23-31); Chloride 104 mmol/L (98-107); Glucose 90 mg/dL (80-115); Potassium 4.4 mmol/L (3.5-5.1); Sodium 140 mmol/L (136-145)
[2021-03-17 01:56] LABS: SARS-CoV-2 PCR by NAA Not Detected (NotDetected)
[2021-03-18 13:36] VITALS: BMI 32.3
[2021-03-21] MEDS ORDERED: Sodium Chloride 0.9% 100 ML ONE (06:06)
[2021-03-21] MEDS ORDERED: Clindamycin/D5W 600 mg/50 ml Premix Bag ONE (06:06)
[2021-03-21] MEDS ORDERED: Tranexamic Acid 1,000 MG/10 ML VIAL ONE ×2 (06:06→11:21)
[2021-03-21] MEDS ORDERED: Fentanyl 100 MCG/2 ML VIAL ONE ×6 (06:09→10:30)
[2021-03-21] MEDS ORDERED: Vancomycin HCl 1.5 GM in Sodium Chloride 0.9% 250 ML 300 ML IVPB SCH ×2 (06:15→20:00)
[2021-03-21] MEDS ORDERED: Lidocaine 2% Jelly 5 ML TUBE ONE (06:22)
[2021-03-21] MEDS ORDERED: Bupivacaine PF 0.5% 30 ML VIAL ONE (06:28)
[2021-03-21] MEDS ORDERED: Lidocaine 1% (PF) 30 ML VIAL ONE (06:43)
[2021-03-21] MEDS ORDERED: Midazolam HCl 2 mg/2 ml Vial ONE (06:43)
[2021-03-21] MEDS ORDERED: traMADol HCl 50 MG TAB PO PRN ×3 (07:15→07:30)
[2021-03-21] MEDS ORDERED: Zolpidem Tartrate 5 MG TAB PO PRN ×3 (07:15→10:06)
[2021-03-21] MEDS ORDERED: Fentanyl 100 MCG/2 ML VIAL SLOW IVP PRN ×2 (07:15→07:19)
[2021-03-21] MEDS ORDERED: Acetaminophen 325 MG TAB PO PRN (07:15)
[2021-03-21] MEDS ORDERED: Promethazine HCl 25 MG/ML VIAL IM PRN ×3 (07:15→10:06)
[2021-03-21] MEDS ORDERED: Ondansetron PF 4 MG/2 ML Vial IVP PRN ×3 (07:15→10:06)
[2021-03-21] MEDS ORDERED: diphenhydrAMINE 25 MG CAP PO PRN ×2 (07:15→10:06)
[2021-03-21] MEDS ORDERED: HYDROcodone/Acetaminophen 10/325 mg Tablet PO PRN ×4 (07:15→07:30)
[2021-03-21] MEDS ORDERED: Lidocaine 1% PF 5 ML VIAL ONE (07:17)
[2021-03-21] MEDS ORDERED: PROPOFOL 200 MG/20 ML VIAL ONE (07:17)
[2021-03-21] MEDS ORDERED: Bupivacaine HCl 0.5%/Epinephrine 1:200,000/PF 30 ml Vial ONE (07:17)
[2021-03-21] MEDS ORDERED: Ondansetron PF 4 MG/2 ML Vial ONE (07:17)
[2021-03-21] MEDS ORDERED: Ketorolac Tromethamine 30 MG/ML VIAL ONE (07:17)
[2021-03-21] MEDS ORDERED: Dexamethasone 20 MG/5 ML VIAL ONE (07:17)
[2021-03-21] MEDS ORDERED: diphenhydrAMINE 50 MG/ML VIAL ONE (07:17)
[2021-03-21] MEDS ORDERED: Dicyclomine 10 MG CAP PO PRN (07:18)
[2021-03-21] MEDS ORDERED: Ketorolac Tromethamine 30 MG/ML VIAL IVP PRN ×2 (07:30→10:06)
[2021-03-21] MEDS ORDERED: Ropivacaine 0.2% 550 ML 550 ML NERVE BLCK SCH (07:30)
[2021-03-21] MEDS ORDERED: Furosemide 40 MG TAB PO SCH ×2 (09:00→12:20)
[2021-03-21] MEDS ORDERED: hydrALAZINE 20 MG/ML VIAL ONE (09:13)
[2021-03-21] MEDS ORDERED: diphenhydrAMINE 50 MG/ML VIAL IM PRN (10:06)
[2021-03-21] MEDS ORDERED: Naloxone HCl 0.4 mg/ml Vial IV PRN (10:06)
[2021-03-21] MEDS ORDERED: diphenhydrAMINE 50 MG/ML VIAL IVP PRN (10:06)
[2021-03-21] MEDS ORDERED: PCA Communication Order-Pharmacy FS SCH (10:15)
[2021-03-21] MEDS ORDERED: fentaNYL Citrate/PF 2,000 MCG in Sodium Chloride 0.9% 60 ML IV PRN (10:30)
[2021-03-21] MEDS: Cholecalciferol 1,000 UNITS (25 MCG) TAB PO SCH (11:39)
[2021-03-21] MEDS: Aspirin 81 mg Enteric Coated Tablet PO SCH ×2 (11:39→20:16)
[2021-03-21] MEDS: Clopidogrel Bisulfate 75 MG TAB PO SCH (11:39)
[2021-03-21] MEDS: Cyanocobalamin (Vitamin B-12) 1,000 MCG TAB PO SCH (11:39)
[2021-03-21] MEDS: Ramipril 5 MG CAP PO SCH (11:39)
[2021-03-21] MEDS: Sodium Chloride 0.9% 1,000 ML IV SCH ×2 (12:18→18:39)
[2021-03-21] MEDS: Clindamycin/D5W 900 MG in Premix Bag 1 BAG IVPB SCH ×2 (12:19→17:38)
[2021-03-22] MEDS: Liothyronine Sodium 5 MCG TAB PO SCH (05:49)
[2021-03-22] MEDS: Furosemide 40 MG TAB PO SCH (05:49)
[2021-03-22] MEDS: Levothyroxine Sodium 88 MCG TAB PO SCH (05:49)
[2021-03-22] MEDS: Sodium Chloride 0.9% 1,000 ML IV SCH ×2 (05:49→19:42)
[2021-03-22 06:11] LABS: Hemoglobin 10.2 g/dL (12.0-16.0); Mean Corpuscular HGB CONC 32.6 g/dL (32.0-36.0); Mean Corpuscular Hemoglobin 31.2 pg (27.0-31.0); Mean Corpuscular Volume 95.7 fL (78.0-98.0); Mean Platelet Volume 8.8 fL (7.4-10.4); Platelet Count 203 thou/uL (130-400); Red Blood Cell (RBC) Count 3.28 mill/uL (4.20-5.40); White Blood Cell (WBC) Count 6.3 thou/uL (4.8-10.8)
[2021-03-22 07:00] LABS: Anion Gap 13 mmol/L (10-20); BUN (Urea Nitrogen) 20 mg/dL (9.8-20.1); Calc. Creatinine Clearance 85 mL/min (70-130); Carbon Dioxide 24 mmol/L (23-31); Chloride 103 mmol/L (98-107); Glucose 100 mg/dL (80-115); Potassium 4.6 mmol/L (3.5-5.1); Sodium 135 mmol/L (136-145)
[2021-03-22] MEDS: Clopidogrel Bisulfate 75 MG TAB PO SCH (08:51)
[2021-03-22] MEDS: Ramipril 5 MG CAP PO SCH (08:51)
[2021-03-22] MEDS: Senokot S 8.6-50 MG TAB PO SCH ×2 (08:51→20:57)
[2021-03-22] MEDS: Ferrous Gluconate 324 MG TAB PO SCH ×2 (08:54→19:43)
[2021-03-22] MEDS: Cholecalciferol 1,000 UNITS (25 MCG) TAB PO SCH (08:55)
[2021-03-22] MEDS: Aspirin 81 mg Enteric Coated Tablet PO SCH ×2 (08:55→20:57)
[2021-03-22] MEDS: Multivitamin W/ Minerals 1 TAB PO SCH (08:56)
[2021-03-22] MEDS: Cyanocobalamin (Vitamin B-12) 1,000 MCG TAB PO SCH (08:56)
[2021-03-22] MEDS ORDERED: traMADol HCl 50 MG TAB PO PRN ×2 (09:17→09:18)
[2021-03-22] MEDS: HYDROcodone/Acetaminophen 10/325 mg Tablet PO PRN ×3 (11:10→21:03)
[2021-03-22] MEDS: Ketorolac Tromethamine 30 MG/ML VIAL IVP SCH ×3 (16:15→20:57)
[2021-03-23] MEDS: Sodium Chloride 0.9% 1,000 ML IV SCH ×2 (01:23→08:20)
[2021-03-23] MEDS: HYDROcodone/Acetaminophen 10/325 mg Tablet PO PRN ×2 (01:29→08:11)
[2021-03-23] MEDS: Ketorolac Tromethamine 30 MG/ML VIAL IVP SCH ×2 (02:45→08:10)
[2021-03-23 05:30] LABS: Hemoglobin 10.1 g/dL (12.0-16.0); Mean Corpuscular Hemoglobin 31.5 pg (27.0-31.0); Mean Corpuscular Volume 95.3 fL (78.0-98.0); Platelet Count 159 thou/uL (130-400); RBC Distribution Width 11.9 % (11.5-14.5); Red Blood Cell (RBC) Count 3.21 mill/uL (4.20-5.40); White Blood Cell (WBC) Count 5.5 thou/uL (4.8-10.8)
[2021-03-23] MEDS: Liothyronine Sodium 5 MCG TAB PO SCH (06:15)
[2021-03-23] MEDS: Furosemide 40 MG TAB PO SCH (06:15)
[2021-03-23] MEDS: Levothyroxine Sodium 88 MCG TAB PO SCH (06:15)
[2021-03-23] MEDS: Aspirin 81 mg Enteric Coated Tablet PO SCH (08:12)
[2021-03-23] MEDS: Ramipril 5 MG CAP PO SCH (08:13)
[2021-03-23] MEDS: Multivitamin W/ Minerals 1 TAB PO SCH (08:15)
[2021-03-23] MEDS: Clopidogrel Bisulfate 75 MG TAB PO SCH (08:15)
[2021-03-23] MEDS: Senokot S 8.6-50 MG TAB PO SCH (08:15)
[2021-03-23] MEDS: Cyanocobalamin (Vitamin B-12) 1,000 MCG TAB PO SCH (08:16)
[2021-03-23] MEDS: Cholecalciferol 1,000 UNITS (25 MCG) TAB PO SCH (08:16)
[2021-03-23] MEDS: Ferrous Gluconate 324 MG TAB PO SCH (08:16)
[2021-03-23 14:57] VITALS: BP 134/74; TEMP 98.2
[2021-03-24] MEDS ORDERED: CeleCOXIB 100 MG CAP PO SCH (09:00)
== END 2021-03-23 15:13 | disposition home or self-care (01) | DRG 470 ==
LOC: SDC 05:36 → SURG A 07:16 → SDC 11:20
PROVIDERS: ADMIT Orthopaedic Surgery; ATTEND Orthopaedic Surgery
PROC: 0SRC0J9 Replacement of Right Knee Joint with Synthetic Substitute, Cemented, Open Approach (ICD-10-PCS; principal; 2021-03-21)
DX: M17.11 Unilateral primary osteoarthritis, right knee (principal); Z20.822 Contact with and (suspected) exposure to COVID-19; I25.10 Atherosclerotic heart disease of native coronary artery without angina pectoris; I73.9 Peripheral vascular disease, unspecified; I10 Essential (primary) hypertension; E03.9 Hypothyroidism, unspecified; K21.9 Gastro-esophageal reflux disease without esophagitis; E53.8 Deficiency of other specified B group vitamins; E55.9 Vitamin D deficiency, unspecified; Z95.828 Presence of other vascular implants and grafts; Z88.0 Allergy status to penicillin; Z98.51 Tubal ligation status; Z90.710 Acquired absence of both cervix and uterus; Z98.1 Arthrodesis status; Z90.49 Acquired absence of other specified parts of digestive tract; Z79.899 Other long term (current) drug therapy; Z79.02 Long term (current) use of antithrombotics/antiplatelets; Z79.890 Hormone replacement therapy; Z83.3 Family history of diabetes mellitus; Z82.49 Family history of ischemic heart disease and other diseases of the circulatory system
CPT/HCPCS: 36415; 80048; 81003; 85025; 85027; 85610; 86850; 86900; 86901; 87081; A4306; C1713; C1776; J0360; J1100; J1200; J1885; J2001; J2250; J2405; J2704; J2795; J3010; J3370; J3490; J7050; S0020; U0003; U0005